=== PATIENT | female | born 1980 | race Caucasian/White ===

== ENCOUNTER → 2023-09-28 16:49 | Outpatient (REF) | payer BC, SELFPAY | LOC: WDC 16:49 | PROVIDERS: ATTENDING PHYSICIAN Obstetrics & Gynecology | DX: Z12.31 Encounter for screening mammogram for malignant neoplasm of breast (principal) | CPT/HCPCS: 77063; 77067 ==

== ENCOUNTER → 2024-01-21 11:31 | Outpatient (REF) | payer BC, SELFPAY | LOC: HWRAD 11:31 | PROVIDERS: ATTENDING PHYSICIAN Family Medicine | DX: M25.551 Pain in right hip (principal) | CPT/HCPCS: 73502 ==

== ENCOUNTER → 2024-05-10 09:46 | Outpatient (REF) | payer BC, SELFPAY | LOC: WDC 09:46 | PROVIDERS: ATTENDING PHYSICIAN Student in an Organized Health Care Education/Training Program | DX: N64.4 Mastodynia (principal); N64.89 Other specified disorders of breast | CPT/HCPCS: 76642; 77061; 77065 ==

== ENCOUNTER → 2024-09-04 08:50 | Outpatient (REF) | payer BC, SELFPAY | LOC: RAD 08:50 | PROVIDERS: ATTENDING PHYSICIAN Nurse Practitioner Adult Health; FAMILY PHYSICIAN Family Medicine | DX: M25.551 Pain in right hip (principal); G89.29 Other chronic pain; R20.9 Unspecified disturbances of skin sensation | CPT/HCPCS: 93926; 93971 ==

== ENCOUNTER → 2024-10-02 18:31 | Outpatient (REF) | payer BC, SELFPAY | LOC: WDC 18:31 | PROVIDERS: ATTENDING PHYSICIAN Obstetrics & Gynecology | DX: Z12.31 Encounter for screening mammogram for malignant neoplasm of breast (principal) | CPT/HCPCS: 77063; 77067 ==

== ENCOUNTER → 2024-10-15 09:36 | Outpatient (REF) | payer BC, SELFPAY | LOC: MRI 3T 09:36 | PROVIDERS: ATTENDING PHYSICIAN Nurse Practitioner Adult Health; FAMILY PHYSICIAN Family Medicine | DX: M25.551 Pain in right hip (principal); G89.29 Other chronic pain; R20.9 Unspecified disturbances of skin sensation | CPT/HCPCS: 72195; 73721 ==

== ENCOUNTER 2024-11-17 06:19 | Day surgery (SDC) | payer BC, SELFPAY ==
[2024-11-13 08:52] LABS: % Basophils 0.6 % (0-2); % Eosinophils 3.5 % (0-6); % Immature Granulocytes 0.3 % (0-0.5); % Lymphocytes 28.7 % (20.5-51.1); % Monocytes 7.4 % (1.7-9.3); % Neutrophils 59.5 % (42.2-75.2); Absolute Eosinophils 0.2 10^3/uL (0-0.7); Absolute Lymphocytes 1.9 10^3/uL (1.2-3.4); Absolute Monocytes 0.5 10^3/uL (0.1-0.6); Absolute Neutrophils 3.9 10^3/uL (1.4-6.5); Hematocrit 36.7 % (37.0-47.0); Hemoglobin 12.3 g/dL (12.0-16.0); Mean Corp Hgb Conc. 33.5 g/dL (33.0-37.0); Mean Corpuscular Hgb 30.1 pg (27.0-31.0); Mean Platelet Volume 10.9 fL (7.4-10.4); Nucleated Red Blood Cells % 0 %; Platelet Count 193 10^3/uL (130-400); Red Blood Cell Count 4.08 10^6/uL (4.20-5.40); Red Cell Dist. Width 12.6 % (11.5-14.5); White Blood Cell Count 6.6 10^3/uL (4.8-10.8)
[2024-11-13 09:19] LABS: Blood Urea Nitrogen 14 mg/dl (7-17); Calcium 9.6 mg/dl (8.4-10.2); Carbon Dioxide 26 mmol/L (22-30); Glucose 81 mg/dl (70-99); Potassium 4.3 mmol/L (3.5-5.1); Sodium 138 mmol/L (135-145); eGFR > 60.00
[2024-11-13 09:21] LABS: Chloride 105 mmol/L (98-107)
[2024-11-13 14:13] VITALS: BMI 21.2
[2024-11-17] VITALS (8 sets, daily range): BP systolic 89–122; BP diastolic 48–77; BMI 21.2
[2024-11-17] MEDS: NORMOSOL-R/PLASMALYTE-A 1000 IV (10:30)
== END 2024-11-17 17:09 | disposition home or self-care (01) ==
LOC: SDS 06:19
PROVIDERS: ATTENDING PHYSICIAN Obstetrics & Gynecology; FAMILY PHYSICIAN Family Medicine
DX: N84.0 Polyp of corpus uteri (principal); N93.9 Abnormal uterine and vaginal bleeding, unspecified
CPT/HCPCS: 58558; 88305; 80048; 85025; 86850; 86900; 86901

== ENCOUNTER → 2025-07-04 07:58 | Outpatient (REF) | payer BC, SELFPAY | LOC: HWRCS 07:58 | PROVIDERS: ATTENDING PHYSICIAN Family Medicine | DX: R06.09 Other forms of dyspnea (principal) | CPT/HCPCS: 93306 ==